=== PATIENT | female | born 1975 | race Asian ===

== ENCOUNTER 2016-09-17 10:08 | Outpatient (CLI) | payer OTHER ==
[~2016-09-17 10:08] MED LIST: AMOX875T8 PO; Cipro OTIC; HYDRTAB76 PO
[2016-09-17 10:38] LABS: PLATELET COUNT 393 K/uL (152-353)
[2016-09-17 10:47] LABS: POTASSIUM 4.3 mmol/L (3.6-5.2); SODIUM 139 mmol/L (136-145)
== END 2016-09-17 23:41 | disposition home or self-care (01) ==
LOC: LABW 10:08
PROVIDERS: Nurse Practitioner
DX: R73.9 Hyperglycemia, unspecified (principal); D64.9 Anemia, unspecified; E03.8 Other specified hypothyroidism; N28.89 Other specified disorders of kidney and ureter
CPT/HCPCS: 36415; 80048; 82607; 82728; 83036; 83540; 84443; 85027

== ENCOUNTER 2016-12-16 12:17 | Outpatient (CLI) | payer OTHER ==
[2016-12-16 12:38] LABS: PLATELET COUNT 325 K/uL (152-353)
[2016-12-16 13:06] LABS: POTASSIUM 4.3 mmol/L (3.6-5.2)
== END 2016-12-16 22:39 | disposition home or self-care (01) ==
LOC: LAB 12:17
PROVIDERS: Nurse Practitioner Family
DX: Z00.00 Encounter for general adult medical examination without abnormal findings (principal); Z79.899 Other long term (current) drug therapy; E03.8 Other specified hypothyroidism; I10 Essential (primary) hypertension; D64.89 Other specified anemias; E55.9 Vitamin D deficiency, unspecified
CPT/HCPCS: 80053; 80061; 82306; 82607; 83036; 84439; 84443; 85027

== ENCOUNTER 2017-03-01 20:19 | Emergency (ER) | payer OTHER ==
[~2017-03-01] VITALS: Ht 175.3 cm; Wt 100.5 kg
[2017-03-01 20:23] VITALS: BP 147/87; TEMP 98.4
== END 2017-03-01 22:43 | disposition home or self-care (01) ==
LOC: ED 20:19
DX: S70.11XA Contusion of right thigh, initial encounter (principal); S80.02XA Contusion of left knee, initial encounter; S00.33XA Contusion of nose, initial encounter; S10.83XA Contusion of other specified part of neck, initial encounter; Y08.02XA Assault by strike by baseball bat, initial encounter; Y92.098 Other place in other non-institutional residence as the place of occurrence of the external cause
CPT/HCPCS: 96374; 99281

== ENCOUNTER 2017-03-19 14:01 | Outpatient (CLI) | payer OTHER ==
[2017-03-19 14:25] LABS: PLATELET COUNT 291 K/uL (152-353)
[2017-03-19 14:50] LABS: SODIUM 136 mmol/L (136-145)
== END 2017-03-19 15:05 | disposition home or self-care (01) ==
LOC: LAB 14:01
PROVIDERS: Nurse Practitioner Family
DX: E03.8 Other specified hypothyroidism (principal); I10 Essential (primary) hypertension; D64.89 Other specified anemias; Z79.899 Other long term (current) drug therapy; E55.9 Vitamin D deficiency, unspecified; Z51.81 Encounter for therapeutic drug level monitoring
CPT/HCPCS: 80053; 80061; 82306; 82607; 83036; 84436; 84443; 85027

== ENCOUNTER 2017-12-19 10:54 | Emergency (ER) | payer OTHER ==
[~2017-12-19] VITALS: Ht 175.3 cm; Wt 99.8 kg
[2017-12-19 11:07] VITALS: TEMP 98.1
[2017-12-19] MEDS ORDERED: LEVO-T88 MCG PO (11:09)
[2017-12-19 12:08] LABS: PLATELET COUNT 342 K/uL (152-353)
[2017-12-19 12:09] LABS: POTASSIUM 4.2 mmol/L (3.6-5.2)
[2017-12-19 13:15] VITALS: BP 154/94
== END 2017-12-19 13:15 | disposition home or self-care (01) ==
LOC: ED 10:54
DX: R07.89 Other chest pain (principal); R00.1 Bradycardia, unspecified
CPT/HCPCS: 36415; 80053; 82550; 82553; 84484; 85027; 85610; 85730; 93005; 99284

== ENCOUNTER 2018-02-09 13:46 | Outpatient (CLI) | payer OTHER ==
[~2018-02-09 13:46] MED LIST changes: +LEVO-T88 MCG PO
[2018-02-09 13:54] LABS: PLATELET COUNT 304 K/uL (152-353)
== END 2018-02-09 22:20 | disposition home or self-care (01) ==
LOC: LAB 13:46
PROVIDERS: Nurse Practitioner Family
DX: E03.8 Other specified hypothyroidism (principal); I10 Essential (primary) hypertension; D64.89 Other specified anemias; Z79.899 Other long term (current) drug therapy; Z51.81 Encounter for therapeutic drug level monitoring
CPT/HCPCS: 80053; 80061; 83036; 84436; 84443; 85027

== ENCOUNTER 2018-06-22 08:27 | Outpatient (CLI) | payer OTHER ==
[2018-06-22 08:50] LABS: PLATELET COUNT 284 K/uL (152-353)
== END 2018-06-22 21:19 | disposition home or self-care (01) ==
LOC: LABW 08:27
PROVIDERS: Internal Medicine
DX: D50.9 Iron deficiency anemia, unspecified (principal); E03.9 Hypothyroidism, unspecified; I10 Essential (primary) hypertension
CPT/HCPCS: 36415; 80053; 80061; 81000; 82607; 82728; 83540; 83550; 84439; 84443; 85027

== ENCOUNTER 2018-10-06 08:06 | Emergency (ER) | payer OTHER ==
[~2018-10-06] VITALS: Ht 175.3 cm; Wt 106.6 kg
[2018-10-06] MEDS ORDERED: AMLODIPINE BESYLATE PO (08:48)
[2018-10-06 10:12] LABS: PLATELET COUNT 345 K/uL (152-353)
[2018-10-06 10:26] LABS: POTASSIUM 3.8 mmol/L (3.6-5.2)
[2018-10-06 13:23] VITALS: BP 150/90; TEMP 97.6
== END 2018-10-06 13:23 | disposition home or self-care (01) ==
LOC: ED 08:06
PROVIDERS: Emergency Medicine
DX: R10.31 Right lower quadrant pain (principal)
CPT/HCPCS: 36415; 80053; 81000; 81025; 82150; 83690; 85027; 96365; 99283; J1885; Q9963

== ENCOUNTER 2018-11-01 08:36 | Outpatient (CLI) | payer OTHER ==
[~2018-11-01 08:36] MED LIST changes: +AMLODIPINE BESYLATE PO
== END 2018-11-01 19:28 | disposition home or self-care (01) ==
LOC: CT 08:36
DX: R91.1 Solitary pulmonary nodule (principal)
CPT/HCPCS: Q9963

== ENCOUNTER 2019-02-22 14:46 | Outpatient (CLI) | payer OTHER ==
[2019-02-22 15:29] LABS: PLATELET COUNT 241 K/uL (152-353)
[2019-02-22 15:34] LABS: POTASSIUM 3.6 mmol/L (3.6-5.2)
== END 2019-02-22 20:03 | disposition home or self-care (01) ==
LOC: LABW 14:46
PROVIDERS: Physician Assistant
DX: E03.9 Hypothyroidism, unspecified (principal)
CPT/HCPCS: 36415; 80053; 84439; 85027

== ENCOUNTER 2019-06-29 10:48 | Outpatient (CLI) | payer OTHER | END 2019-06-29 21:37 | disposition home or self-care (01) | LOC: RAD 10:48 | DX: M54.5 Low back pain (principal) ==

== ENCOUNTER 2021-01-23 08:30 | Outpatient (CLI) | payer OTHER | END 2021-01-23 23:00 | disposition home or self-care (01) | LOC: CT 08:30 | PROVIDERS: ATTEND Internal Medicine | DX: R10.84 Generalized abdominal pain (principal) | CPT/HCPCS: 36415; 82565; 84520 ==

== ENCOUNTER 2021-01-24 08:26 | Outpatient (CLI) | payer OTHER | END 2021-01-24 22:44 | disposition home or self-care (01) | LOC: CT 08:26 | PROVIDERS: ATTEND Internal Medicine | DX: R10.84 Generalized abdominal pain (principal) | CPT/HCPCS: Q9963 ==

== ENCOUNTER 2021-02-11 11:15 | Outpatient (CLI) | payer OTHER | END 2021-02-11 14:00 | disposition home or self-care (01) | LOC: RAD 11:15 | PROVIDERS: ATTEND Internal Medicine | DX: M25.562 Pain in left knee (principal); M79.89 Other specified soft tissue disorders ==

== ENCOUNTER → 2021-08-05 | Outpatient (CLI) | payer OTHER | LOC: MAMMO 09:30 | PROVIDERS: ATTEND Family Medicine | DX: Z12.31 Encounter for screening mammogram for malignant neoplasm of breast (principal) ==

== ENCOUNTER 2021-12-16 11:41 | Outpatient (CLI) | payer OTHER | END 2021-12-16 20:50 | disposition home or self-care (01) | LOC: RAD 11:41 | PROVIDERS: ATTEND Internal Medicine | DX: J40 Bronchitis, not specified as acute or chronic (principal) ==

== ENCOUNTER 2022-05-20 08:05 | Outpatient (CLI) | payer OTHER ==
[2022-05-20 08:42] LABS: PLATELET COUNT 255 K/uL (152-353)
[2022-05-20 09:15] LABS: POTASSIUM 3.5 mmol/L (3.6-5.2)
== END 2022-05-20 20:56 | disposition home or self-care (01) ==
LOC: RAD 08:05
PROVIDERS: ATTEND Internal Medicine
DX: M17.12 Unilateral primary osteoarthritis, left knee (principal); I10 Essential (primary) hypertension; E03.8 Other specified hypothyroidism
CPT/HCPCS: 36415; 80053; 80061; 81002; 84439; 84443; 85027